=== PATIENT | male | born 1955 | race Caucasian/White ===

== ENCOUNTER → 2017-10-16 | Outpatient (CLI) | payer BC ==
[2016-12-19 11:32] VITALS: BMI 19918.3
[~2017-10-16] MED LIST: ACET500T68 PO; CEFA2PLA4 IV; MOM PO; OXYC-823 PO; OXYC20TA99 PO; PER PO; POLY17PO25 PO
== END ==
LOC: LAB 15:52
PROVIDERS: ATTEND Orthopaedic Surgery Hand Surgery
DX: G89.18 Other acute postprocedural pain (principal); T84.53XA Infection and inflammatory reaction due to internal right knee prosthesis, initial encounter
CPT/HCPCS: 36415; 85027; 85651; 86140

== ENCOUNTER → 2017-11-12 | Outpatient (CLI) | payer BC ==
[2016-12-19 11:32] VITALS: BMI 19918.3
== END ==
LOC: LAB 12:51
PROVIDERS: ATTEND Orthopaedic Surgery Hand Surgery
DX: M25.561 Pain in right knee (principal); Z98.890 Other specified postprocedural states
CPT/HCPCS: 36415; 85027; 85651; 86140